=== PATIENT | male | born 1975 | race Caucasian/White ===

== ENCOUNTER 2017-04-03 11:51 | Emergency (ER) | payer BC ==
[~2017-04-03] VITALS: Ht 165.1 cm; Wt 99.8 kg
[2017-04-03 11:58] VITALS: BP_SYST 135
[2017-04-03] MEDS ORDERED: NA PHOS,M-B/NA PHOS,DI-BA 118 ML (FLEET ENEMA) RC ONE (12:45)
[2017-04-03 13:41] VITALS: BP_SYST 130
== END 2017-04-03 13:39 | disposition home or self-care (01) ==
LOC: SED 11:51
DX: K59.00 Constipation, unspecified (principal); I10 Essential (primary) hypertension; E78.00 Pure hypercholesterolemia, unspecified
CPT/HCPCS: 99284

== ENCOUNTER 2017-04-07 02:51 | Emergency (ER) | payer BC ==
[~2017-04-07] VITALS: Ht 165.1 cm; Wt 103.4 kg
[2017-04-07 03:46] VITALS: BP_SYST 155
--- NOTE | 2017-04-07 03:46 | NUR ---
Patient to ER bed 8 to gown for evaluation. Side rails up. Report given to WESLEY HERNANDEZ.
--- NOTE | 2017-04-07 03:50 | NUR ---
Patient AAO x4, sitting in bed, c/o abd pain 10 with constipation x " a few days". Patient has already seen primary care provider concerning constipation episodes. Denies chest pain, minor bloating noted to abdomen. Denies N/V/D. No acute distress noted. Will continue to monitor.
--- NOTE | 2017-04-07 04:45 | NUR ---
ALEKSEY Fisher at bedside examining patient.
[2017-04-07] MEDS ORDERED: NACL 0.9% 1,000 ML IV ONE (04:49)
--- NOTE | 2017-04-07 05:00 | NUR ---
# 18 gauge angiocath placed to R AC. Use of asceptic technique. Opsite placed over site. Blood return noted. Two patient identifiers used for blood draw. Blood for lab drawn from site. Flushed with 10 cc of normal saline. No evidence of infiltration noted. Patient tolerated well.
[2017-04-07 05:21] LABS: BASOPHILS % (AUTO) 0.2 % (0.0-2.0); EOSINOPHILS % (AUTO) 0.2 % (0.0-4.0); HEMATOCRIT 46.5 % (36-54); MEAN CORPUSCULAR HEMOGLOBIN 28 pg (27-31); MEAN CORPUSCULAR HGB CONC 32 % (32-36); MEAN CORPUSCULAR VOLUME 86 fL (79.0-98.0); MONOCYTES # (AUTO) 0.2 K/uL (0.0-1.0); MONOCYTES % (AUTO) 2.1 % (1.7-9.3); NEUTROPHILS # (AUTO) 7.9 K/uL (1.8-7.7); NEUTROPHILS % (AUTO) 86.5 % (40.0-70.0); PLATELET COUNT (AUTO) 305 K/uL (130-430); RED BLOOD CELL COUNT(AUTO) 5.42 MIL/uL (4.2-6.2); RED CELL DISTRIBUTION WIDTH 13.2 % (9.0-15.0); WHITE BLOOD COUNT (AUTO) 9.1 K/uL (4.8-10.8)
[2017-04-07 05:31] LABS: CALCIUM 9.3 mg/dL (8.4-11.0); CREATININE 0.95 mg/dL (0.55-1.30); POTASSIUM 3.9 mmol/L (3.5-5.1)
[2017-04-07 05:35] LABS: ALBUMIN 3.9 g/dL (3.4-4.8); TOTAL BILIRUBIN 0.5 mg/dL (0.0-1.0)
[2017-04-07] MEDS ORDERED: PANTOPRAZOLE SODIUM 40 MG/VIAL (PROTONIX) IVP ONE (05:45)
[2017-04-07] MEDS ORDERED: MAGNESIUM CITRATE 300 ML ORAL SOLUTION PO ONE (05:45)
[2017-04-07 05:51] LABS: BILIRUBIN,URINE NEGATIVE (NEGATIVE); BLOOD, URINE NEGATIVE (NEGATIVE); CLARITY/URINE HAZY (CLEAR); COLOR,URINE YELLOW (YELLOW); GLUCOSE,URINE NEGATIVE (NEGATIVE); KETONES,URINE NEGATIVE (NEGATIVE); LEUKOCYTE ESTERASE ,URINE NEGATIVE (NEGATIVE); NITRITE, URINE NEGATIVE (NEGATIVE); PROTEIN URINE NEGATIVE (NEGATIVE); UROBILINOGEN,URINE 0.2 (0.2-1.0)
--- NOTE | 2017-04-07 06:00 | NUR ---
Patient resting quietly. No acute distress noted. Vital signs within normal range.
--- NOTE | 2017-04-07 06:20 | NUR ---
Patient ambulated to bathroom. Tolerated well.
[2017-04-07] MEDS ORDERED: CIPROFLOXACIN HCL 500 MG TABLET PO ONE (06:45)
[2017-04-07] MEDS ORDERED: metroNIDAZOLE 500 MG TABLET PO ONE (06:45)
[2017-04-07 07:10] VITALS: BP_SYST 130
--- NOTE | 2017-04-07 07:10 | NUR ---
Patient given written and verbal discharge instructions and verbalizes understanding. ER MD discussed with patient the results and treatment provided. Patient in stable condition. ID arm band removed. IV catheter removed intact and dressing applied, no active bleeding. Rx of cipro and flagyl given. Patient educated on pain management and to follow up with PMD. Pain Scale 2/10, tolerable by patient. Patient to take home magnesium sulfate per md instructions. Opportunity for questions provided and answered.
== END 2017-04-07 07:10 | disposition home or self-care (01) ==
LOC: SED 02:51
DX: K57.92 Diverticulitis of intestine, part unspecified, without perforation or abscess without bleeding (principal); E78.00 Pure hypercholesterolemia, unspecified; I10 Essential (primary) hypertension
CPT/HCPCS: 36415; 74176; 80053; 81003; 83690; 85025; 96361; 96374; 99285; C9113; J7030